=== PATIENT | male | born 1990 | race Caucasian/White ===

== ENCOUNTER 2016-06-07 20:27 | Emergency (ER) | payer OTHER ==
[~2016-06-07] VITALS: Ht 172.7 cm; Wt 79.4 kg
[~2016-06-07 20:27] MED LIST: POLYTRIM O200 GTT/BO OPH
--- NOTE | 2016-06-07 21:25 | ED EYE COMPLAINT ---
History of Present Illness General Chief Complaint: Eye Problems Stated Complaint: "THINK I HAVE A PEICE OF METAL IN MY EYE" PER PT Source: patient Exam Limitations: no limitations Vital Signs & Intake/Output Vital Signs & Intake/Output Vital Signs Date Time Temp Pulse Resp B/P Pulse O2 O2 Flow FiO2 Ox Delivery Rate 06/074 97.4 72 18 114/75 97 Room Air Room Air 06/070 Room Air 06/07 2029 97.6 78 20 115/76 99 Room Air ED Intake and Output 06/08 0000 06/07 1200 Intake Total Output Total Balance Patient 175 lb Weight Allergies Coded Allergies: Sulfa (Sulfonamide Antibiotics) (HAD A KID 06/07/16) Reconcile Medications Ofloxacin (Floxin) 0.3 % DROPS 1-2 DROP OP Q4 CORNEAL FB TAKE X 10 DAYS Triage Note: QUESTIONABLE FB LEFT EYE 2-3 HRS Triage Nurses Notes Reviewed? yes Onset: Abrupt Duration: constant Timing: recent history Severity: mild Severity Numbers: 3 HPI: Patient is a 25-year-old male who presents emergency and that today while wearing protective eye ends where and cutting metal he believes that a foreign body is embedded to his left eye. Patient has seen the foreign body and has complained of mild irritation however no blurred vision no discharge no photophobia Tetanus is unknown (LEYDI HOUSTON) Past History Travel History Traveled to [place] past 21 day No Medical History Any Pertinent Medical History? see below for history Respiratory: asthma Surgical History Surgical History: non-contributory, N Psychosocial History What is your primary language [place] Family History Hx Contributory? No (LEYDI HOUSTON) Review of Systems Review of Systems Constitutional: Reports: no symptoms. Eyes: Reports: see HPI, foreign body sensation, inflammation, pain. Denies: blurred vision, drainage, decreased acuity, photophobia, contact lenses. Ear: Reports: no symptoms. Nose: Reports: no symptoms. Mouth: Reports: no symptoms. Throat: Reports: no symptoms. Respiratory: Reports: no symptoms. Cardiovascular: Reports: no symptoms. GI: Reports: no symptoms. Genitourinary: Reports: no symptoms. Musculoskeletal: Reports: no symptoms. Skin: Reports: no symptoms. Neurological/Psychological: Reports: no symptoms. Hematologic/Endocrine: Reports: no symptoms. Immunologic/Allergic: Reports: no symptoms. All Other Systems: Reviewed and Negative (LEYDI HOUSTON) Physical Exam General Appearance: well developed/nourished, no apparent distress, alert General Inspection: SEE COMMENTS Eyelid: normal inspection Conjunctiva/Sclera: see diagram Cornea: normal inspection, examined w/fluorescein EOM: intact Pupil: normal accommodation, normal pupil, PERRL Anterior Chamber: normal inspection Eye Left 1) 2 mm brown foreign body noted General Inspection: normal inspection Eyelid: normal inspection Conjunctiva/Sclera: normal inspection Cornea: normal inspection EOM: intact Pupil: normal accommodation, normal pupil, PERRL Anterior Chamber: normal inspection Physical Exam Head: atraumatic Nose: normal inspection Mouth/Throat: normal mouth inspection Neck: normal inspection Cardiovascular/Respiratory: no respiratory distress Neurologic/Psych: no motor/sensory deficits Skin: intact (LEYDI HOUSTON) Progress Differential Diagnosis: corneal abrasion, corneal foreign body, conjunctivitis, detached retina, glaucoma, globe rupture Plan of Care: Current Medications Sig/Alessandro Start time Last Medication Dose Stop Time Status Admin Tetanus/Diphtheria 0.5 ML ONCE ONE 06/07 2214 UNVr Toxoids Adsorbed 06/08 2215 (Decavac) Patient on physical exam showed suspicion of foreign body most likely metallic substance in which initially using multiple tetracaine drops for relief of symptoms I tried using a wet cotton swab to remove foreign body with no success. Tetanus was updated. Patient was PERRLA Patient was strongly advised to follow-up with ophthalmology for close observation and further treatment and patient and mom will comply. Staining was performed showing only uptake to the foreign body No rust ring noted at this time (LEYDI HOUSTON) Departure Departure Disposition: HOME OR SELF CARE Condition: Stable Clinical Impression Primary Impression: Corneal foreign body Referrals: PATIENT HAS NO PRIMARY CARE DR (PCP/Family) KARSTEN MOTT,LEYDI Escobedo Additional Instructions: As discussed first thing tomorrow please call office for further evaluation and treatment. Begin [id number] ibuprofen if needed for pain and inflammation. Begin the prescription of ofloxacin as directed for the full course. If symptoms worsen return to emergency room. Departure Forms: Customer Survey General Discharge Information Prescriptions: Current Visit Scripts Ofloxacin (Floxin) 1-2 DROP OP Q4 #1 BOT TAKE X 10 DAYS (LEYDI HOUSTON) PA/WAREHOUSE REPRESENTATIVE Co-Sign Statement Statement: ED Attending supervision documentation- [] I saw and evaluated the patient. I have also reviewed all the pertinent lab results and diagnostic results. I agree with the findings and the plan of care as documented in the PA's/WAREHOUSE REPRESENTATIVE's documentation. [X] I have reviewed the ED Record and agree with the PA's/WAREHOUSE REPRESENTATIVE's documentation. [] Additions or exceptions (if any) to the PAs/WAREHOUSE REPRESENTATIVE's note and plan are summarized below: [] (GRISELDA MOTT,AIDE)
[2016-06-07] MEDS ORDERED: FLOXIN10 ML OP (22:18)
[2016-06-07 22:44] VITALS: BP 114/75
== END 2016-06-07 22:45 ==
LOC: ERH 20:27
DX: T15.02XA Foreign body in cornea, left eye, initial encounter (principal)
CPT/HCPCS: 90471; 90714